=== PATIENT | male | born 1985 | race Hispanic/Latino ===

== ENCOUNTER → 2021-05-19 | Outpatient (CLI) | payer OTHER | END | disposition home or self-care (01) | LOC: ICE 12:01 | PROVIDERS: ATTEND Internal Medicine Cardiovascular Disease | DX: Z20.822 Contact with and (suspected) exposure to COVID-19 (principal) | CPT/HCPCS: 87635; C9803 ==

== ENCOUNTER 2022-01-25 20:54 | Inpatient (IN) | payer OTHER ==
[~2022-01-25] VITALS: Ht 177.8 cm; Wt 103.4 kg
[2022-01-25 21:55] LABS: BASOPHILS % (AUTO) 0.8 % (0.0-5.0); EOSINOPHILS % (AUTO) 6.9 % (0.0-8.0); LYMPHOCYTES % (AUTO) 23.7 % (21.0-51.0); MEAN CORPUSCULAR HEMOGLOBIN 29.6 pg (27.0-33.0); MEAN CORPUSCULAR HGB CONC 33.9 g/dL (32.0-36.0); MEAN CORPUSCULAR VOLUME 87.2 fL (79-99); MONOCYTES % (AUTO) 10.9 % (3.0-13.0); NEUTROPHILS % (AUTO) 57.4 % (40.0-77.0); PLATELET COUNT (AUTO) 210 K/uL (130-400); RED CELL DISTRIBUTION WIDTH 12.7 % (11.0-15.5)
[2022-01-25 22:03] LABS: POTASSIUM 3.6 mmol/L (3.5-5.1)
[2022-01-25 22:04] LABS: INR 0.96 (0.85-1.15); PROTHROMBIN TIME 10.5 SEC (9.6-11.6)
[2022-01-25 22:06] LABS: PARTIAL THROMBOPLASTIN TIME 25.4 SEC (26.3-35.5)
[2022-01-25 22:19] LABS: ALBUMIN 3.7 g/dL (3.5-5.0); TOTAL PROTEIN, SERUM 7.5 g/dL (6.0-8.3)
[2022-01-25 22:26] LABS: APPEARANCE,URINE CLEAR (CLEAR); BILIRUBIN,URINE NEGATIVE (NEGATIVE); COLOR,URINE COLORLESS (YELLOW); GLUCOSE, URINE (UA) NEGATIVE (NEGATIVE); KETONES,URINE NEGATIVE (NEGATIVE); LEUKOCYTE ESTERASE ,URINE NEGATIVE Leu/uL (NEGATIVE); NITRATE,URINE NEGATIVE (NEGATIVE); OCCULT BLOOD,URINE NEGATIVE (NEGATIVE); PH,URINE 6.5 (5.0-8.0); PROTEIN,URINE NEGATIVE (NEGATIVE); UROBILINOGEN,URINE 0.2 mg/dL (0.2-1.0)
[2022-01-25 22:49] LABS: ACETAMINOPHEN < 1 mcg/mL (10-29); ALCOHOL, BLOOD < 3 mg/dL (0-10); SALICYLATE < 2.8 mg/dL (2.8-20.0)
[2022-01-26] MEDS ORDERED: TEMAZEPAM 15 MG CAPSULE PO PRN
[2022-01-26] MEDS ORDERED: HYDRALAZINE 20MG/ML VIAL IV PRN
[2022-01-26] MEDS ORDERED: CLONIDINE HCL 0.1 MG TABLET PO PRN
[2022-01-26] MEDS ORDERED: ZOSYN 3.375GM +NS 50ML IV ONE
[2022-01-26] MEDS ORDERED: ONDANSETRON 4MG INJ IVP PRN
[2022-01-26] MEDS: 0.9%NACL 1000ML 1,000 ML IV SCH ×3 (00:10→17:45)
[2022-01-26 01:01] VITALS: BP 128/89
[2022-01-26 03:52] VITALS: BP 123/76
[2022-01-26 06:47] LABS: BASOPHILS % (AUTO) 0.8 % (0.0-5.0); EOSINOPHILS % (AUTO) 7.6 % (0.0-8.0); HEMATOCRIT 40.6 % (42-54); MEAN CORPUSCULAR HGB CONC 34.2 g/dL (32.0-36.0); MEAN CORPUSCULAR VOLUME 87.7 fL (79-99); MONOCYTES % (AUTO) 9.5 % (3.0-13.0); NEUTROPHILS % (AUTO) 51.8 % (40.0-77.0); PLATELET COUNT (AUTO) 208 K/uL (130-400); RED BLOOD CELL COUNT(AUTO) 4.63 MIL/uL (4.50-6.20); RED CELL DISTRIBUTION WIDTH 12.6 % (11.0-15.5); WHITE BLOOD COUNT (AUTO) 6.2 K/uL (4.8-10.8)
[2022-01-26 07:00] LABS: INR 0.97 (0.85-1.15); PROTHROMBIN TIME 10.6 SEC (9.6-11.6)
[2022-01-26 07:01] LABS: CREATININE 0.9 mg/dL (0.5-1.5); MAGNESIUM 1.8 mg/dL (1.80-2.40); PHOSPHORUS 4.2 mg/dL (2.5-4.9); POTASSIUM 3.7 mmol/L (3.5-5.1)
[2022-01-26 08:00] VITALS: BP 115/69
[2022-01-26 08:07] LABS: ALBUMIN 3.3 g/dL (3.5-5.0); BILIRUBIN,DIRECT 0.6 mg/dL (0.0-0.3); TOTAL PROTEIN, SERUM 6.9 g/dL (6.0-8.3)
[2022-01-26] MEDS ORDERED: ENOXAPARIN SODIUM 30 MG/0.3 ML SQ SCH (09:00)
[2022-01-26 12:00] VITALS: BP 123/76
[2022-01-26 14:54] LABS: HEPATITIS A IGM ANTIBODY Non-Reactive (Nonreactive); HEPATITIS B CORE IGM ANTIBODY Non-Reactive (Negative); HEPATITIS B SURFACE ANTIGEN Non-Reactive (Nonreactive); HEPATITIS C ANTIBODY Non-Reactive (Nonreactive)
[2022-01-26] MEDS: CEFTRIAXONE 2GM VIAL IVP SCH (15:46)
[2022-01-26 16:00] VITALS: BP 119/77
[2022-01-26] MEDS: PANTOPRAZOLE 40 MG/VIAL IVP SCH ×2 (20:18→20:21)
[2022-01-26 20:44] VITALS: BP 132/94
[2022-01-27] VITALS (20 sets, daily range): BP systolic 117–134; BP diastolic 60–91
[2022-01-27] MEDS: 0.9%NACL 1000ML 1,000 ML IV SCH (01:22)
[2022-01-27] MEDS ORDERED: KETOROLAC 15MG/ML VIAL (15MG/ML) IV PRN (04:30)
[2022-01-27] MEDS ORDERED: KETOROLAC 15MG/ML VIAL (15MG/ML) IM PRN (04:30)
[2022-01-27 05:18] LABS: HEMATOCRIT 39.5 % (42-54); MEAN CORPUSCULAR HEMOGLOBIN 30.1 pg (27.0-33.0); MEAN CORPUSCULAR HGB CONC 34.2 g/dL (32.0-36.0); RED BLOOD CELL COUNT(AUTO) 4.49 MIL/uL (4.50-6.20); RED CELL DISTRIBUTION WIDTH 12.4 % (11.0-15.5)
[2022-01-27 05:57] LABS: ALBUMIN 3.2 g/dL (3.5-5.0); BILIRUBIN,DIRECT 1.8 mg/dL (0.0-0.3); CREATININE 0.9 mg/dL (0.5-1.5); MAGNESIUM 1.7 mg/dL (1.80-2.40); POTASSIUM 3.1 mmol/L (3.5-5.1); TOTAL PROTEIN, SERUM 6.8 g/dL (6.0-8.3)
[2022-01-27] MEDS ORDERED: IOHEXOL-350 75 ML VIAL IV ONE (07:51)
[2022-01-27] MEDS ORDERED: PROPOFOL 10 MG/ML 20ML VIAL IV ONE (08:11)
[2022-01-27] MEDS ORDERED: SUCCINYLCHOLINE 200MG/10ML SYR ONE (08:11)
[2022-01-27] MEDS ORDERED: LIDOCAINE HCL 400MG/20ML VIAL ONE (08:16)
[2022-01-27] MEDS ORDERED: LIDOCAINE HCL-MPF 1% 2ML VIAL IV PRN (08:30)
[2022-01-27] MEDS ORDERED: POTASSIUM CHLORIDE 10% ELIXIR 20 MEQ/15 ML UDCUP PO PRN (08:30)
[2022-01-27] MEDS ORDERED: POTASSIUM CHLORIDE 20MEQ/100ML 100 ML IV PRN (08:30)
[2022-01-27] MEDS: PANTOPRAZOLE 40 MG/VIAL IVP SCH ×2 (10:00→21:19)
[2022-01-27] MEDS: NS-20 MEQ KCL 1000ML 1,000 ML IV SCH ×2 (10:00→18:30)
[2022-01-27] MEDS ORDERED: PHARMACY COMMUNICATION MISC SCH (10:30)
[2022-01-27] MEDS ORDERED: BENZOCAINE/MENTH/CETYLPYRD CL 1 EACH LOZENGE MM PRN (10:30)
[2022-01-27] MEDS ORDERED: MAG/ALUM/SIMETH 30ML 60 ML, LIDOCAINE HCL 2% VISCOUS 60 ML, DIPHENHYDRAMINE HCL 150 MG PO PRN ×3 (10:30)
[2022-01-27] MEDS ORDERED: COMPOUND PO MISCELLANEOUS 1 EACH MISC MISC PRN (10:30)
[2022-01-27] MEDS ORDERED: BISACODYL 5 MG TABLET.DR PO ONE ×2 (10:56→21:00)
[2022-01-27] MEDS: KCL 20 MEQ ERTAB PO PRN ×3 (11:13→19:24)
[2022-01-27] MEDS: CEFTRIAXONE 2GM VIAL IVP SCH (16:41)
[2022-01-27] MEDS ORDERED: ZOLPIDEM TARTRATE 5 MG TAB PO PRN (20:30)
[2022-01-27] MEDS ORDERED: DIPHENHYDRAMINE HCL 25 MG CAPSULE PO PRN (20:30)
[2022-01-27] MEDS: BISACODYL 5 MG TABLET.DR PO SCH (21:00)
[2022-01-28] MEDS: NS-20 MEQ KCL 1000ML 1,000 ML IV SCH ×2 (04:40→14:30)
[2022-01-28 05:58] LABS: HEMATOCRIT 41.7 % (42-54); MEAN CORPUSCULAR HGB CONC 34.1 g/dL (32.0-36.0); RED BLOOD CELL COUNT(AUTO) 4.74 MIL/uL (4.50-6.20); RED CELL DISTRIBUTION WIDTH 12.9 % (11.0-15.5); WHITE BLOOD COUNT (AUTO) 5.3 K/uL (4.8-10.8)
[2022-01-28 06:24] LABS: ALBUMIN 3.3 g/dL (3.5-5.0); CREATININE 0.9 mg/dL (0.5-1.5); MAGNESIUM 1.7 mg/dL (1.80-2.40); POTASSIUM 3.4 mmol/L (3.5-5.1)
[2022-01-28 06:50] VITALS: BP 129/76
[2022-01-28] MEDS ORDERED: MAGNESIUM CHLORIDE 70 MG TABLET.SA PO SCH (07:00)
[2022-01-28] MEDS ORDERED: KCL 20 MEQ ERTAB PO SCH (07:00)
[2022-01-28 07:03] VITALS: BP 118/85
[2022-01-28] MEDS: BISACODYL 5 MG TABLET.DR PO SCH (09:00)
[2022-01-28 11:09] VITALS: BP 131/86
[2022-01-28] MEDS: PANTOPRAZOLE 40 MG/VIAL IVP SCH (11:26)
[2022-01-28 15:39] LABS: ALBUMIN 3.7 g/dL (3.5-5.0); BILIRUBIN,DIRECT 1.6 mg/dL (0.0-0.3); TOTAL PROTEIN, SERUM 7.6 g/dL (6.0-8.3)
== END 2022-01-28 16:50 | disposition home or self-care (01) | DRG 445 ==
LOC: EDH 20:54 → OBSVTOIN 23:49 → EDHIP 23:49 → 3CH 01-26 00:26
PROVIDERS: ADMIT Internal Medicine Pulmonary Disease; ATTEND Internal Medicine Pulmonary Disease
PROC: 0FC98ZZ Extirpation of Matter from Common Bile Duct, Via Natural or Artificial Opening Endoscopic (ICD-10-PCS; principal; 2022-01-27)
PROC: BF131ZZ Fluoroscopy of Gallbladder and Bile Ducts using Low Osmolar Contrast (ICD-10-PCS; 2022-01-27)
DX: K80.71 Calculus of gallbladder and bile duct without cholecystitis with obstruction (principal); B17.9 Acute viral hepatitis, unspecified; E66.9 Obesity, unspecified; Z20.822 Contact with and (suspected) exposure to COVID-19; E80.6 Other disorders of bilirubin metabolism; K76.0 Fatty (change of) liver, not elsewhere classified; K21.9 Gastro-esophageal reflux disease without esophagitis; Z68.32 Body mass index [BMI] 32.0-32.9, adult
CPT/HCPCS: 36415; 43262; 43264; 74177; 74181; 74328; 74330; 76705; 78227; 80048; 80053; 80074; 80076; 81003; 82150; 82248; 83615; 83690; 83735; 84100; 85025; 85027; 85610; 85730; 87635; 93005; A9537; C1769; C1773; C9113; G0378; G0481; J0330; J0696; J1885; J2543; J2704; J3480; J3490; J7030; Q0163; Q9967